=== PATIENT | female | born 1985 | race African-American/Black ===

== ENCOUNTER 2016-05-30 08:13 | Emergency (ER) | payer OTHER ==
[~2016-05-30] VITALS: Ht 162.6 cm; Wt 90.0 kg
[~2016-05-30 08:13] MED LIST: PENI500T PO
[2016-05-30 08:17] VITALS: BP 174/93; PULSE 85; RESP 18; TEMP 98.1; O2SAT 100
[2016-05-30] MEDS ORDERED: ROBA750T PO (08:54)
--- NOTE | 2016-05-30 08:55 | PD ---
HPI Chief Complaint: Pain: Acute or Chronic Time Seen by Provider: 08:50 Travel History International Travel<30 days: No Contact w/Intl Traveler<30days: No Traveled to known affect area: No History of Present Illness HPI 30-year-old female presents to the emergency department for evaluation of right shoulder pain that started yesterday. Patient states the pain is worse with movement. Patient states that she does want to for living and does a lot of heavy lifting and pushing. She denies any cough. Patient denies any recent travel or surgery. Patient denies any paresthesias or anesthesias. Patient does report the pain is worse with movement. She denies any shortness of breath or chest pain. No abdominal pain. No nausea or vomiting. Patient tried aspirin last night before bed. She states she cannot take ibuprofen because it upsets her stomach. No other complaints at this time. Patient does report a history of hypertension and takes amlodipine. PFSH Past Medical History Diminished Hearing: No Hypertension: Yes ?: Not : 1 Para: 1 Past Surgical History Section: Yes Social History Alcohol Use: No Tobacco Use: No Substance Use: No Allergies-Medications (Allergen,Severity, Reaction): Coded Allergies: Shellfish (Verified Allergy, Severe, Hives, 05/31/14) Lisinopril (Verified Allergy, Unknown, 05/31/14) Reported Meds & Prescriptions Reported Meds & Active Scripts Active Pen Vk (Penicillin V Potassium) 500 Mg Tab 500 Mg PO Q12 10 Days Review of Systems Except as stated in HPI: all other systems reviewed are Neg Physical Exam Narrative GENERAL: Well-developed well-nourished female patient, ambulatory. Afebrile. SKIN: Warm and dry. HEAD: Normocephalic. Atraumatic. EYES: No scleral icterus. No injection or drainage. NECK: Supple, trachea midline. No JVD or lymphadenopathy. CARDIOVASCULAR: Regular rate and rhythm without murmurs, gallops, or rubs. Right radial pulse is 2+. RESPIRATORY: Breath sounds equal bilaterally. No accessory muscle use. Lungs sounds are clear to auscultation GASTROINTESTINAL: Abdomen soft, non-tender, nondistended. MUSCULOSKELETAL: No cyanosis, or edema. Patient has tenderness over right trapezius muscle to palpation. BACK: Nontender without obvious deformity. No CVA tenderness. Data Data Last Documented VS Vital Signs Date Time Temp Pulse Resp B/P Pulse Ox O2 Delivery O2 Flow Rate FiO2 05/30/16 08:17 98.1 85 18 174/93 100 MDM Medical Decision Making Medical Screen Exam Complete: Yes Emergency Medical Condition: Yes Medical Record Reviewed: Yes Differential Diagnosis Muscle strain versus muscle spasm versus unlikely contusion Narrative Course 30-year-old female presents to the emergency department for evaluation of right shoulder pain since yesterday. No trauma. Physical exam is consistent with muscle strain. Patient is given Toradol 60 mg IM and Robaxin 500 mg by mouth. She will be discharged prescription for Robaxin. She states she cannot take anti-inflammatories because it upsets her stomach. She is to take Tylenol at home as needed for pain. She is rotate ice and heat and follow up with her primary care physician. The patient was discharged in stable condition with instructions, including return instructions and follow up instructions. Diagnosis Primary Impression: Muscle strain Referrals: Primary Care Physician call for appointment Patient Instructions: General Instructions, Muscle Strain (ED) Departure Forms: Tests/Procedures, Work Release Enter return to work date: Jun 01, 2016 Additional Instructions: Tylenol every 4 hours [id number] as needed for pain. Rotate ice/heat. Take Robaxin as directed as needed. Follow-up with your primary care physician. Return to the emergency department for any acute worsening of symptoms. Med/Other Pt SpecificInfo: Prescription(s) given Scripts Methocarbamol (Robaxin)750 Mg [id number] Mg PO TID PRN (MUSCLE SPASM) #21 TAB Ref 0 Prov:April Manzanares 05/30/16 Disposition: 01 DISCHARGE HOME Condition: Stable April Manzanares May 30, 2016 08:55
[2016-05-30] MEDS ORDERED: METHOCARBAMOL 500 MG TAB PO ONE (09:00)
[2016-05-30] MEDS ORDERED: KETOROLAC TROMETHAMINE 60 MG/2 ML (IM) VIAL IM ONE (09:00)
== END 2016-05-30 09:10 | disposition home or self-care (01) ==
LOC: NEPB 08:13
DX: S46.911A Strain of unspecified muscle, fascia and tendon at shoulder and upper arm level, right arm, initial encounter (principal); I10 Essential (primary) hypertension; X50.0XXA Overexertion from strenuous movement or load, initial encounter; X50.9XXA Other and unspecified overexertion or strenuous movements or postures, initial encounter; Y93.9 Activity, unspecified
CPT/HCPCS: 96372; 99283; J1885